=== PATIENT | female | born 1975 | race Caucasian/White ===

== ENCOUNTER → 2021-01-16 10:29 | Outpatient (CLI) | payer BC, SELFPAY ==
--- NOTE | 2021-01-16 07:00 | CYSPIN_PTH ---
PATIENT: ROBI PEREZ LOC: [facility] U#:[id number] AGE/SX: 50/F ROOM: RE01/16/[address]: Dr. Shelley Bardales MD : 1975 BED: DIS: SPEC #: [id number] RECD: 01/16/21 12:18 STATUS: BOUCHRA FREDIS #: [id number] KARI: 01/16/21 07:[address]: Shelley Bardales DEPT: CYTOLOGY RECD BY: Ifrah Murillo Tissues: Urine Procedures: Pap Stain (control) Special Stain Group II Cytospin Fluid HEADER OPERATION: Not noted PRE-OP DIAGNOSIS: Gross hematuria TISSUE SUBMITTED: Urine for cytology DIAGNOSIS CYTOLOGY Urine for cytology (cytospin): Negative for malignant cells. Bloody specimen. See comment. LINDSAY:robert 01/17/2021 COMMENT The specimen predominantly consists of squamous epithelial cells. Clinical correlation and appropriate follow up are necessary. CYTOLOGY STUDY Slides are reviewed. CYTOLOGY GROSS Received is 15.5 ml of brown cloudy fluid labeled with the patient's name and and designated per the requisition as urine. Submitted for cytology preparation. / robert 01/16/2021 TC:5 CPT: 73908
[2021-01-16 11:15] LABS: Cytology, Body Fluid / CSF SEE PATHOLOGY REPORT
== END ==
PROVIDERS: Referring Provider Urology; Visit Provider Urology
DX: R31.0 Gross hematuria (principal)
CPT/HCPCS: 88108; 88313

== ENCOUNTER → 2021-01-21 07:55 | Outpatient (CLI) | payer BC, SELFPAY ==
[2021-01-20 14:24] LABS: Hematocrit 37.6 % (37-47); Hemoglobin 12.2 g/dL (12.0-15.0); Mean Corp Hgb Conc 32.4 g/dL (32-36); Mean Corpuscular Hgb 29.4 pg (27.0-32.0); Mean Corpuscular Volume 90.6 fL (81-99); Mean Platelet Vol. 8.9 fl (6.2-12.0); Platelet Count 276 K/mm3 (150-450); RBC Distribution Width CV 12.8 % (11.6-14.6); RBC Distribution Width SD 41.9 fl (35.1-43.9); Red Blood Count 4.15 M/mm3 (4.2-5.4)
[2021-01-20 14:35] LABS: Anion Gap 5 (5-15); BUN 13 mg/dL (7-18); BUN/Creat Ratio 19.9 RATIO (10-20); Calcium,Total 8.8 mg/dL (8.5-10.1); Chloride 104 mmol/L (98-107); Creatinine, Serum 0.65 mg/dL (0.55-1.02); EST Glomerular Filtration Rate 104 mL/min (>60); Est Glom Filt Rate - Afr Amer 125 mL/min (>60); Glucose 90 mg/dL (74-106); Potassium 3.9 mmol/L (3.5-5.1); Sodium Level 138 mmol/L (136-145)
[2021-01-20 22:21] LABS: Xtra Tube EP Lab EXTRA TUBE
--- NOTE | 2021-01-21 08:02 | CT_ITS ---
STUDY: CT ABDOMEN AND PELVIS WITH AND WITHOUT CONTRAST REASON FOR EXAM: Female, 45 years old. GROSS HEMATURIA for 5 to 6 weeks RADIATION DOSAGE (If Supplied By Facility): CTDIvol = ( 18.51 ) mGy, DLP = ( 2794.40 ) mGycm TECHNIQUE: Transaxial images were obtained from the dome of the diaphragm to the symphysis pubis without oral contrast. 100mL Isovue 370 was administered. Sagittal and coronal images were reconstructed. Individualized dose optimization techniques were used for this CT. COMPARISON: None. FINDINGS: The visualized lung bases are unremarkable. The visualized portions of the heart are within normal limits. Normal liver. Normal gallbladder and extrahepatic biliary system. Normal spleen. Normal pancreas. Normal bilateral adrenal glands. Normal right kidney. Normal left kidney. Normal visualized stomach. Normal small intestine. Normal colon. The appendix is visualized and appears normal. Normal abdominal aorta. Normal inferior vena cava. Normal retroperitoneum. Normal urinary bladder. Normal abdominal wall. Normal osseous structures. CT/CT Abd/Pelvis W/WO Contrast IMPRESSION: Normal unenhanced and enhanced CT of the abdomen and pelvis. Electronically Signed: Vincent Schroeder MD at 9:27 EDT , Service support ,
== END ==
PROVIDERS: PCP General Practice; Referring Provider Urology; Visit Provider Urology
DX: R31.0 Gross hematuria (principal)
CPT/HCPCS: 36415; 74178; 80048; 85027; Q9967

== ENCOUNTER 2021-02-18 06:04 | Day surgery (SDC) | payer BC, SELFPAY ==
[2021-02-18 06:35] VITALS: BP 112/72; PULSE 85; RESP 16; TEMP 36.8; O2SAT 98; BMI 29.4
[2021-02-18 06:39] LABS: Internal QC Validated? YES +Cl - CLEAR BKGD; Pregnancy, Urine Negative Negative
[2021-02-18] MEDS: Lactated Ringers 1,000 ML 100 ML IV ×2 (06:54→08:33)
--- NOTE | 2021-02-18 07:30 | CYSPIN_PTH ---
PATIENT: ROBI [place]EREZ [place] [facility] [id number] AGE/SX: 45/F ROOM: RE02/18/[address]: Dr. Shelley Bardales MD : 1975 BED: DIS: 02/18/2021 SPEC #: [id number] RECD: 02/18/21 12:25 STATUS: BOUCHRA FREDIS #: [id number] KARI: 02/18/21 07:[address]: Shelley Bardales DEPT: CYTOLOGY RECD BY: Ifrah Murillo ENTERED: 02/18/21 13:05 SP TYPE: CYSPIN FL OTHR DR: Dr. Leeann Osorio MD Tissues: A - Kidney, NOS B - Kidney, NOS Procedures: Pap Stain (control) Special Stain Group II Cytospin Fluid HEADER OPERATION: Cysto, ureteroscopy PRE-OP DIAGNOSIS: Gross hematuria TISSUE SUBMITTED: A ? Right renal pelvis for cytology, B ? Left renal pelvis for cytology DIAGNOSIS CYTOLOGY A. Right renal pelvic fluid for cytology (cytospin): Mildly atypical urothelial cells present, favor reactive. B. Left renal pelvic fluid for cytology (cytospin): Mildly atypical urothelial cells present, favor reactive. AM:robert 02/19/2021 COMMENT Case has been reviewed in consultation with Dr. Blanchard who concurs with the above diagnosis. IDC:SJ CYTOLOGY STUDY Slides are reviewed. CYTOLOGY GROSS A - Received is 5 ml of cloudy colorless fluid labeled with the patient's name and and designated per the requisition as right renal pelvis. Submitted for cytology preparation. B - Received is 10 ml of pink cloudy fluid labeled with the patient's name and and designated per the requisition as left renal pelvis. Submitted for cytology preparation. / robert 02/18/2021 TC:? CPT: 43560 x2
--- NOTE | 2021-02-18 08:16 | PCM.HP.STD ---
HPI - General HPI Narrative WEDNESDAY ANA, is a 45 F who presents for further evaluation of gross hematuria with negative CT urogram and negative office cystoscopy. Informed consent was obtained. [facility] Medical History (Updated 02/18/21 @ 08:[address] Shelley Bardales MD) Anxiety Depression Gross hematuria Migraine headache Non-smoker Wears contact lenses Wears glasses Home Medications escitalopram oxalate [Lexapro] 20 mg PO DAILY 02/10/21 [History Last Taken Unknown] Allergy/AdvReac Type Severity Reaction Status Date / Time No Known Allergies Allergy Verified 02/10/21 11:48 Social History Smoking Status: Never smoker ROS Constitutional Constitutional: Reports systems reviewed and no addt'l complaints, except as documented; Denies anorexia, change in weight or chills Eyes Eyes: Reports systems reviewed and no addt'l complaints, except as documented ENT HEENT: Reports systems reviewed and no addt'l complaints, except as documented and abnormal hearing Cardiovascular Cardiovascular: Denies abdominal pain, chest pain or irregular heart rhythm Respiratory/Chest Respiratory/Chest: Denies dyspnea, inability to speak or shortness of breath at rest Gastrointestinal Gastrointestinal: Denies abdominal pain, anorexia, change in bowel habits or hematochezia Genitourinary Genitourinary: Reports hematuria Musculoskeletal Musculoskeletal: Reports systems reviewed and no addt'l complaints, except as documented; Denies difficulty walking Integumentary Integumentary: Reports systems reviewed and no addt'l complaints, except as documented Neurologic Neurologic: Reports systems reviewed and no addt'l complaints, except as documented; Denies abnormal gait, abnormal movements or abnormal speech Psychiatric Psychiatric: Reports systems reviewed and no addt'l complaints, except as documented Vital Signs Vital Signs Vital Signs: 02/18/21 06:34 02/18/21 06:35 Temperature 98.3 F Temperature Source Temporal Pulse Rate 85 Respiratory Rate 16 Respiratory Pattern Normal Blood Pressure 112/72 Blood Pressure Mean 85 Blood Pressure Source Monitor Blood Pressure Position Sitting Blood Pressure Location Left Arm Pulse Ox 98 Oxygen Delivery Method Room Air Physical Exam Const alert, oriented x3, no apparent distress and average body habitus General Appearance: cooperative, comfortable, well kempt and well developed Orientation / Consciousness: awake Exam Limitations: no limitations HEENT normocephalic and head/scalp atraumatic Eyes General Eye: normal appearance of both eyes Eyelid: eyelids normal Neck General: normal visual inspection and trachea midline Chest inspection of chest normal Chest: symmetrical chest wall rise Resp normal respiratory effort, normal air movement, no retractions and no use of accessory muscles Cardio regular rate and regular rhythm GI soft to palpation, non-tender and non-distended no CVA tenderness, external exam normal and appearance of the vagina normal External Female Exam: normal appearance of the urethra Bimanual Exam - Vag & Uterus: normal bimanual exam and normal vaginal palpation Back/Spine no CVA tenderness Extremity normal to inspection and no pedal edema Skin no rashes or lesions noted, no wounds and no jaundice General Skin Exam: no breakdown Neuro oriented x3, CN's II-XII intact bilaterally, moves all extremities and gait normal Psych mental status grossly normal, thought process normal, cooperative and affect normal Lab / Micro Data Labs: Laboratory Results - last 24 hr 02/18/21 06:20 Urine Test Negative Assessment & Plan Assessment/Plan (1) Gross hematuria: PLAN: proceed with cystoscopy, bilateral ureteroscopy, bilateral selective cytologies, possible ureteral stents Procedure Criteria Type of Procedure Procedure Type: Elective Elective Risks - COVID COVID Risk Discussion: The surgeon/proceduralist and patient have discussed in detail the risk of exposure to and/or potential harm posed by the COVID-19 virus with having a surgery/procedure at this time versus the risk of delaying the surgery/procedure. It is not possible to know either the risk of delaying the surgery or procedure or chance of getting an infection with perfect accuracy, but a joint decision was made between the patient and the surgeon/proceduralist to proceed at this time with the scheduled surgery/procedure as indicated on the consent form.
--- NOTE | 2021-02-18 08:27 | PCM.OPRPT ---
Problems Associated Problem List Diagnoses (1) Gross hematuria: Report of Operation Date of Procedure: 02/18/21 Pre-Operative Diagnosis: gross hematuria Post-Operative Diagnosis: same Surgery/Procedure Performed:: cystoscopy, bilateral selective cytology, bilateral retrograde pyelograms, right ureteroscopy, bilateral ureteral stent insertion Description of Surgical Findings:: Bilateral narrow ureters distally, unable to access proximal with the ureteroscope. Surgeon: Shelley Bardales statistical machine servicer: Nata Type of Anesthesia: General Specimen's removed: Bilateral urine selective from each kidney sent separately for cytology Description of Procedure: The patient is a 45-year-old female with gross hematuria recurrently with negative cystoscopy and CT urogram. She presents today for further evaluation with ureteroscopy and bilateral selective cytologies. Informed consent was obtained. The patient was taken to the operating room placed on the operating room table. Anesthesia monitored the head, neck, airway, IV access and vital signs throughout the case. Once anesthesia was apparently administered the patient was placed into dorsal lithotomy position and was prepped and draped in usual sterile fashion. A cystourethroscopy was performed through the urethra under direct visualization into the urinary bladder. The urethra was normal without evidence of mass, stricture or abnormality. Upon entry into the urinary bladder the bladder mucosa was visualized in its entirety. There were no masses ulcerations or lesions identified. Bilateral ureteral orifices were correctly located in the area of the trigone. A Pollick catheter was used to gently intubate the right ureteral orifice and was inserted up to 20 cm and selective cytology was obtained. A retrograde pyelogram was then performed through the Pollick catheter. No filling defects were identified at this time. There is a question of narrowing in the area of the distal ureter. At this time a wire was passed through the Pollick catheter. Flexible ureteroscopy was attempted over the wire. The flexible ureteroscope entered the distal aspect of the ureter and a narrowing was unable to be navigated. The decision was made to place a ureteral stent and return later for ureteroscopy. A 6 x 24 JJ stent was placed over the wire with positioning in the renal pelvis as well as the urinary bladder. This exact procedure was repeated on the patient's left side with brand-new Pollick catheter and syringe. The findings were the same except the ureteroscope was unable to enter into the left ureter at all. A 6 x 24 JJ stent was placed on the site as well. The patient's bladder was then emptied and the case was terminated. The patient was taken to the recovery room in good condition. Grafts/Implants Used: 6 x 24 JJ stent x2 Complications None Admit VTE Documentation VTE Present on Admission: Yes VTE Mechan Device Prophylaxis: SCD's VTE Pharm Prophylaxis ordered?: No Reason prophylaxis not ordered:: Treatment Not Indicated
--- NOTE | 2021-02-18 08:28 | PCM.DC ---
Discharge Instructions Diet Discharge Diet: No restrictions Activity Discharge Activity: Return to Normal Activity and May not drive while taking narcotic pain medications. May resume sexual activity in: No Restrictions Dressing / Incision Call your doctor if you observe: Fever of 101 or Higher, Inability to urinate, Inability to have a bowel movement and Uncontrolled pain Follow Up Care Please Follow Up With: Shelley Bardales MD When: call office for appt Test Results: Test results from this visit will be discussed in further detail at your follow-up appointment, if applicable. Discharge Plan Admission Primary Reason for Your Visit: Gross Hematuria Attending Provider: Shelley Bardales Primary Care Provider: Leeann Osorio Discharge Orders/Prescriptions Prescriptions: New oxycodone-acetaminophen [Percocet] 5-325 mg tablet 1 tab PO Q8H PRN (Reason: pain) 3 Days Qty: 10 RF: 0 cephalexin 500 mg capsule 500 mg PO Q12 Qty: 6 RF: 0 phenazopyridine [Pyridium] 200 mg tablet 200 mg PO TID PRN PRN (Reason: Bladder Spasms) Qty: 30 RF: 0 Continued escitalopram oxalate [Lexapro] 20 mg Tablet 20 mg PO DAILY RF: 0 Referrals / Follow Up: Leeann Osorio MD [Primary Care Provider] - Disposition Disposition (needs filled in before D/C Order can be placed): Home, self care
[2021-02-18] MEDS: Cefazolin 2 GM in 0.9% Normal Saline 100 ML IV (11:12)
[2021-02-18 12:15] VITALS: BP 112/72; BP 119/77; PULSE 101; RESP 16; TEMP 37.3; O2SAT 99
[2021-02-18 12:30] VITALS: BP 112/72; BP 127/88; PULSE 94; RESP 16; O2SAT 100
[2021-02-18 12:37] VITALS: BP 112/72; BP 127/87; PULSE 89; RESP 16; TEMP 36.8; O2SAT 99
[2021-02-18 13:43] VITALS: BP 112/72; BP 132/82; PULSE 81; RESP 16; TEMP 36.6; O2SAT 98
== END 2021-02-18 13:48 | disposition home or self-care (01) ==
LOC: SDC 06:05 → AC 06:07
PROVIDERS: Anesthesiology; PCP General Practice; Referring Provider Urology; Visit Provider Urology
PROC: 0TJ98ZZ Inspection of Ureter, Via Natural or Artificial Opening Endoscopic (ICD-10-PCS; CPT 52352; principal; 2021-02-18 07:20)
DX: R31.0 Gross hematuria (principal); F41.9 Anxiety disorder, unspecified; F32.9 Major depressive disorder, single episode, unspecified; Z79.899 Other long term (current) drug therapy
CPT/HCPCS: 52332; 52351; 76000; 81025; 88108; 88313; J7120; C2617; J2405

== ENCOUNTER 2021-02-27 07:10 | Day surgery (SDC) | payer BC, SELFPAY ==
--- NOTE | 2021-02-27 06:49 | PCM.HP.STD ---
HPI - General HPI Narrative WEDNESDAY ANA, is a 45 F who presents for ureteroscopy and stent change bilaterally to fully evaluate her gross hematuria. Her ureters were too narrow for ureteroscopy at the last attempt. COUNT INCLUDES [facility] Medical History Anxiety Depression Gross hematuria (~02/18/21) Migraine headache Non-smoker Wears contact lenses Wears glasses Home Medications escitalopram oxalate [Lexapro] 20 mg PO DAILY 02/10/21 [History Last Taken Unknown] oxycodone-acetaminophen [Percocet] 1 tab PO Q8H PRN 3 Days #10 tab 02/18/21 [Rx Last Taken Unknown] Allergy/AdvReac Type Severity Reaction Status Date / Time No Known Allergies Allergy Verified 02/24/21 11:09 Surgical History (Updated 02/24/21 @ 11:10 by Carley Romo) Hx of cystoscopy Social History Smoking Status: Never smoker ROS Constitutional Constitutional: Denies anorexia, change in weight or fever(s) Eyes Eyes: Reports systems reviewed and no addt'l complaints, except as documented ENT HEENT: Reports systems reviewed and no addt'l complaints, except as documented Cardiovascular Cardiovascular: Denies chest pain or dyspnea Respiratory/Chest Respiratory/Chest: Denies cough or dyspnea Gastrointestinal Gastrointestinal: Reports systems reviewed and no addt'l complaints, except as documented Genitourinary Genitourinary: Reports hematuria and other Details: with stents having colic and bladder spasms Integumentary Integumentary: Reports systems reviewed and no addt'l complaints, except as documented Neurologic Neurologic: Reports systems reviewed and no addt'l complaints, except as documented Psychiatric Psychiatric: Reports systems reviewed and no addt'l complaints, except as documented Hematologic/Lymphatic Hematologic/Lymphatic: Reports systems reviewed and no addt'l complaints, except as documented Vital Signs Vital Signs Vital Signs: Weight Body Mass Index (BMI) 29.4 Physical Exam Const alert, oriented x3 and no apparent distress General Appearance: cooperative, comfortable and well kempt Orientation / Consciousness: awake Exam Limitations: no limitations HEENT normocephalic, head/scalp atraumatic and hearing grossly normal bilaterally Eyes conjunctivae normal and no scleral icterus General Eye: normal appearance of both eyes Neck supple General: trachea midline Chest inspection of chest normal Chest: symmetrical chest wall rise Resp normal respiratory effort, normal air movement and no retractions Cardio regular rate and regular rhythm GI soft to palpation, non-tender and non-distended no CVA tenderness and external exam normal Back/Spine no CVA tenderness Extremity normal to inspection and no calf tenderness Skin no rashes or lesions noted, no wounds, skin turgor normal and no jaundice Neuro oriented x3, CN's II-XII intact bilaterally and moves all extremities Psych mental status grossly normal, thought process normal and cooperative Assessment & Plan Assessment/Plan (1) Gross hematuria: PLAN: proceed with cystoscopy, bilateral ureteroscopy and bilateral stent change. informed consent obtained Procedure Criteria Type of Procedure Procedure Type: Elective Elective Risks - COVID COVID Risk Discussion: The surgeon/proceduralist and patient have discussed in detail the risk of exposure to and/or potential harm posed by the COVID-19 virus with having a surgery/procedure at this time versus the risk of delaying the surgery/procedure. It is not possible to know either the risk of delaying the surgery or procedure or chance of getting an infection with perfect accuracy, but a joint decision was made between the patient and the surgeon/proceduralist to proceed at this time with the scheduled surgery/procedure as indicated on the consent form.
--- NOTE | 2021-02-27 06:58 | PCM.DC ---
Discharge Instructions Diet Discharge Diet: No restrictions Activity Discharge Activity: Return to Normal Activity and May not drive while taking narcotic pain medications. May resume sexual activity in: No Restrictions Dressing / Incision Call your doctor if you observe: Fever of 101 or Higher, Inability to urinate, Inability to have a bowel movement, Calf discomfort and Uncontrolled pain Follow Up Care Please Follow Up With: Shelley Bardales MD When: call office for appt Test Results: Test results from this visit will be discussed in further detail at your follow-up appointment, if applicable. Discharge Plan Admission Attending Provider: Shelley Bardales Primary Care Provider: Leeann Osorio Discharge Orders/Prescriptions Prescriptions: New cephalexin 500 mg capsule 500 mg PO Q12 Qty: 6 RF: 0 Uribel 118-10-40.8-36 mg capsule 1 tab PO TID PRN PRN (Reason: bladder spasms) 10 Days Qty: 30 RF: 3 Continued escitalopram oxalate [Lexapro] 20 mg Tablet 20 mg PO DAILY RF: 0 oxycodone-acetaminophen [Percocet] 5-325 mg tablet 1 tab PO Q8H PRN (Reason: pain) 3 Days Qty: 10 RF: 0 Referrals / Follow Up: Leeann Osorio MD [Primary Care Provider] - Disposition Disposition (needs filled in before D/C Order can be placed): Home, self care
--- NOTE | 2021-02-27 06:59 | PCM.OPRPT ---
Problems Associated Problem List Diagnoses (1) Gross hematuria: Report of Operation Date of Procedure: 02/27/21 Pre-Operative Diagnosis: gross hematuria Post-Operative Diagnosis: same, right renal pelvic lesion Surgery/Procedure Performed:: cystoscopy, bilateral ureteroscopy, Laser of right renal pelvic lesion, bilateral stent change Surgeon: Shelley Bardales Type of Anesthesia: General Specimen's removed: Right renal pelvic washings for cytology Description of Procedure: The patient is a 45-year-old female with gross hematuria who presents for ureteroscopic evaluation and treatment. Informed consent was obtained. The patient was taken to the operating room and placed on the operating room table. Anesthesia monitored the head, neck, airway, IV access and vital signs throughout the case. Once anesthesia was appropriately administered, the patient was placed into dorsal lithotomy position was prepped and draped in usual sterile fashion. The cystoscope was entered into the urinary bladder through the urethra under direct visualization. Bilateral ureteral stents were observed. The right 1 was grasped with the grasping forceps and pulled into the urethral meatus. A wire was inserted through the stent into the renal pelvis seen on fluoroscopy. Using the cystoscope, a second 0.035 Glidewire was placed alongside the first to be used for safety wire. The ureteroscope was then inserted over the wire and access was obtained to the right renal pelvis. In the mid pole 2 areas of polyp formation were seen in 2 separate calyces. The remainder of the examination was normal. There was no active bleeding at this time. An attempt was made at biopsy of these tissues, the ureteroscope would not curve appropriately enough to gain access while the biopsy forceps were in position. The decision was made to laser these tissues and send washings for cytologic evaluation. This was then performed as planned. The 2 lesions were treated and cytology was sent. The remainder of the collecting system including the entire length of the right ureter was directly visualized as the ureteroscope was removed finding no abnormalities. Using the safety wire, a 6 Palestinian 24 cm ureteral stent was inserted without difficulty. Attention was then turned toward the patient's left side where the stent was grasped and pulled to the meatus. A wire was inserted through the stent and one alongside it for safety. An attempt was made at passage of the ureteroscope up to the renal pelvis but access was only gained to the distal ureter. At this time the decision was made to replace the stent and allow for further dilatation of the ureter for a full 2 weeks. The ureteroscope was removed finding no abnormality of the distal left ureter. A 6 Palestinian 24 cm double-J stent was inserted without difficulty over the safety wire with good curling in the renal pelvis as well as the urinary bladder. The patient's bladder was then emptied and the case was terminated. The patient was awakened and taken to the recovery room in good condition. There were no complications during this procedure. Grafts/Implants Used: 6 x 24 JJ stents Complications None Admit VTE Documentation VTE Present on Admission: Yes VTE Mechan Device Prophylaxis: SCD's VTE Pharm Prophylaxis ordered?: No Reason prophylaxis not ordered:: Treatment Not Indicated
[2021-02-27 07:37] VITALS: BP 112/75; PULSE 77; RESP 18; TEMP 36.3; O2SAT 99; BMI 29.0
[2021-02-27 07:39] LABS: Internal QC Validated? YES +Cl - CLEAR BKGD; Pregnancy, Urine Negative Negative
[2021-02-27] MEDS: Lactated Ringers 1,000 ML 100 ML IV ×2 (07:47→09:55)
[2021-02-27] MEDS: Cefazolin 2 GM in 0.9% Normal Saline 100 ML IV (08:23)
--- NOTE | 2021-02-27 08:30 | FLU_PTH ---
PATIENT: ROBI PEREZ [place] [facility] [place][id number] AGE/SX: 45/F ROOM: RE02/27/[address]: Dr. Shelley Bardales MD : 1975 BED: DIS: 02/27/2021 SPEC #: [id number] RECD: 02/27/21 10:22 STATUS: BOUCHRA FREDIS #: [id number] KARI: 02/27/21 08:[address]: Shelley Bardales DEPT: CYTOLOGY RECD BY: Ifrah Murillo ENTERED: 02/27/21 11:04 SP TYPE: Fluid OTHR DR: Dr. Leeann Osorio MD Tissues: Kidney, NOS Procedures: Special Stain Group II Surgery Specimen Level IV Cytospin Fluid HEADER OPERATION: Cysto, bilateral ureteroscopy, bilateral stent change PRE-OP DIAGNOSIS: Gross hematuria TISSUE SUBMITTED: Right renal pelvic washings for cytology DIAGNOSIS CYTOLOGY Right renal pelvis, washings (cytospin and cell block): Negative for malignant cells. See comment. AM:robert 02/28/2021 COMMENT Urothelial cells in clusters are identified. Clinical correlation is suggested. Case has been reviewed in consultation with Dr. Blanchard who concurs with the above diagnosis. IDC:LINDSAY CYTOLOGY STUDY Slides are reviewed. CYTOLOGY GROSS Received is 20 ml of light pink cloudy fluid labeled with the patient's name and and designated per the requisition as right renal pelvic washings. Submitted for cytology preparation. / LINDSAY:robert 02/27/21 TC:5 CPT: 61128
[2021-02-27 10:00] VITALS: BP 107/74; BP 112/75; PULSE 88; RESP 16; TEMP 36.1; O2SAT 97
[2021-02-27 10:08] VITALS: BP 100/71; BP 112/75; PULSE 87; RESP 18; O2SAT 100
[2021-02-27 10:15] VITALS: BP 106/82; BP 112/75; PULSE 87; RESP 18; O2SAT 96
[2021-02-27 10:30] VITALS: BP 112/75; BP 112/86; PULSE 81; RESP 18; TEMP 36.1; O2SAT 100
[2021-02-27 11:30] VITALS: BP 112/75; BP 117/85; PULSE 76; RESP 18; TEMP 36.2; O2SAT 100
== END 2021-02-27 12:07 | disposition home or self-care (01) ==
LOC: SDC 07:11 → AC 07:12
PROVIDERS: Anesthesiology; PCP General Practice; Referring Provider Urology; Visit Provider Urology
PROC: 0TJ98ZZ Inspection of Ureter, Via Natural or Artificial Opening Endoscopic (ICD-10-PCS; CPT 52352; principal; 2021-02-27 08:20)
DX: R31.0 Gross hematuria (principal); F41.9 Anxiety disorder, unspecified; F32.9 Major depressive disorder, single episode, unspecified; G43.909 Migraine, unspecified, not intractable, without status migrainosus; Z79.899 Other long term (current) drug therapy
CPT/HCPCS: 00912; 52332; 52354; 76000; 81025; 88108; 88305; 88313; J7120; C2617; J2405

== ENCOUNTER 2021-03-11 10:48 | Day surgery (SDC) | payer BC, SELFPAY ==
[2021-03-11 11:12] LABS: Internal QC Validated? YES +Cl - CLEAR BKGD; Pregnancy, Urine Negative Negative
[2021-03-11] MEDS: Lactated Ringers 1,000 ML 100 ML IV (11:22)
[2021-03-11 11:24] VITALS: BP 122/79; PULSE 77; RESP 16; TEMP 36.9; O2SAT 100; BMI 29.2
[2021-03-11] MEDS: Cefazolin 2 GM in 0.9% Normal Saline 100 ML IV (13:44)
--- NOTE | 2021-03-11 13:53 | PCM.OPRPT ---
Problems Associated Problem List Diagnoses (1) Gross hematuria: Report of Operation Date of Procedure: 03/11/21 Pre-Operative Diagnosis: Gross hematuria Post-Operative Diagnosis: Same Surgery/Procedure Performed:: Cystoscopy, left ureteroscopy, bilateral ureteral stent removal Surgeon: Shelley Bardales Type of Anesthesia: General Specimen's removed: None Description of Procedure: The patient is a 45-year-old female with gross hematuria who is already status post cystoscopy with bilateral ureteral stent insertion for ureteral dilation, right ureteroscopy with laser of tissue in the right renal pelvis. She now presents for further evaluation of her left calyces. Informed consent was obtained. The patient was taken to the operating room and placed in the operating room table. Anesthesia monitored the head, neck, airway, IV access and vital signs throughout the case. Once anesthesia was appropriately administered the patient was placed into dorsal lithotomy position was prepped and draped in usual sterile fashion. At this time the cystoscope was inserted through the urethra under direct visualization into the urinary bladder. The stents were easily identified. The right ureteral stent was removed without difficulty. The left ureteral stent was brought to the urethral meatus and intubated with a 0.035 Glidewire. At this point the stent was removed and a second wire was placed alongside the first. This was used as a safety wire. The flexible ureteroscope was then passed over this wire without difficulty and access was obtained to the left renal pelvis. Each calyces was directly visualized and found to be complex in nature but without evidence of mass, stone or bleeding. There was no abnormal tissue identified. At this time the entire left ureter was directly visualized with the ureteroscope and found to be within normal limits. The ureteroscope was then removed along with the safety wire. The patient's bladder was emptied and the case was terminated. The patient was taken to the recovery room in good condition, there were no complications during this procedure. Grafts/Implants Used: None Complications None Admit VTE Documentation VTE Present on Admission: Yes VTE Mechan Device Prophylaxis: SCD's Reason prophylaxis not ordered:: Treatment Not Indicated
--- NOTE | 2021-03-11 14:08 | PCM.DC ---
Discharge Instructions Diet Discharge Diet: No restrictions Activity Discharge Activity: Return to Normal Activity May resume sexual activity in: No Restrictions Dressing / Incision Call your doctor if you observe: Fever of 101 or Higher, Inability to urinate, Inability to have a bowel movement, Calf discomfort and Uncontrolled pain Follow Up Care Please Follow Up With: Shelley Bardales MD When: in 3 weeks. Office will call her to schedule CT first. Test Results: Test results from this visit will be discussed in further detail at your follow-up appointment, if applicable. Discharge Plan Admission Attending Provider: Shelley Bardales Primary Care Provider: Leeann Osorio Discharge Orders/Prescriptions Prescriptions: New hydrocodone-acetaminophen [hydrocodone-acetaminophen] 1 TABLET tablet 1 tab PO Q4H PRN PRN (Reason: Pain) 7 Days Qty: 20 RF: 0 cephalexin [cephalexin] 500 MG capsule 500 mg PO Q12 3 Days Qty: 6 RF: 0 Continued escitalopram oxalate [Lexapro] 20 mg Tablet 20 mg PO DAILY RF: 0 Uribel 118-10-40.8-36 mg capsule 1 tab PO TID PRN PRN (Reason: bladder spasms) 10 Days Qty: 30 RF: 3 Referrals / Follow Up: Leeann Osorio MD [Primary Care Provider] - Disposition Disposition (needs filled in before D/C Order can be placed): Home, self care
[2021-03-11 14:15] VITALS: BP 118/81; BP 122/79; PULSE 77; RESP 16; TEMP 36.2; O2SAT 100
[2021-03-11 14:30] VITALS: BP 116/89; BP 122/79; PULSE 84; RESP 16; O2SAT 98
[2021-03-11 14:45] VITALS: BP 116/86; BP 122/79; PULSE 76; RESP 16; O2SAT 98
[2021-03-11 14:50] VITALS: BP 122/79; BP 122/81; PULSE 73; RESP 16; TEMP 36.1; O2SAT 99
[2021-03-11 15:30] VITALS: BP 122/79; BP 123/88; PULSE 82; RESP 16; TEMP 36.6; O2SAT 99
--- NOTE | 2021-03-14 08:42 | HP.PCM_ITS ---
HPI - General HPI Narrative WEDNESDAY ANA, is a 45 F who presents for cystoscopy, left ureteroscopy for gross hematuria unknown etiology. Informed consent was obtained. She has no complaints consistent with urinary tract infection today. [facility] Medical History Anxiety Depression Gross hematuria (~02/18/21) Migraine headache Non-smoker Wears contact lenses Wears glasses Home Medications escitalopram oxalate [Lexapro] 20 mg PO DAILY 02/10/21 [History Last Taken 03/10/21] Uribel 1 tab PO TID PRN PRN 10 Days #30 cap 02/27/21 [Rx Last Taken Unknown] cephalexin 500 mg PO Q12 3 Days #6 capsule 03/11/21 [Rx Last Taken Unknown] hydrocodone-acetaminophen 1 tab PO Q4H PRN PRN 7 Days #20 tablet 03/11/21 [Rx Last Taken Unknown] Allergy/AdvReac Type Severity Reaction Status Date / Time No Known Allergies Allergy Verified 03/05/21 16:02 Surgical History Hx of cystoscopy Social History Smoking Status: Never smoker ROS Constitutional Constitutional: Reports systems reviewed and no addt'l complaints, except as documented Eyes Eyes: Reports systems reviewed and no addt'l complaints, except as documented ENT HEENT: Reports systems reviewed and no addt'l complaints, except as documented Cardiovascular Cardiovascular: Reports systems reviewed and no addt'l complaints, except as documented Respiratory/Chest Respiratory/Chest: Reports systems reviewed and no addt'l complaints, except as documented Gastrointestinal Gastrointestinal: Reports systems reviewed and no addt'l complaints, except as documented Genitourinary Genitourinary: Reports systems reviewed and no addt'l complaints, except as documented and hematuria Integumentary Integumentary: Reports systems reviewed and no addt'l complaints, except as documented Neurologic Neurologic: Reports systems reviewed and no addt'l complaints, except as documented Psychiatric Psychiatric: Reports systems reviewed and no addt'l complaints, except as documented Endocrine Endocrinology: Reports systems reviewed and no addt'l complaints, except as documented Hematologic/Lymphatic Hematologic/Lymphatic: Reports systems reviewed and no addt'l complaints, except as documented Vital Signs Vital Signs Vital Signs: Weight Weight: 75 kg Body Mass Index (BMI) 29.2 Physical Exam Const alert, oriented x3 and no apparent distress HEENT normocephalic and head/scalp atraumatic Eyes conjunctivae normal and no scleral icterus Neck supple General: trachea midline Lymph Lymphatic: no lymphedema noted Chest inspection of chest normal Chest: symmetrical chest wall rise Resp normal respiratory effort, normal air movement and no retractions Effort and Inspection: able to speak in complete sentences and symmetric chest movement Cardio regular rate and regular rhythm GI soft to palpation, non-tender, non-distended and no masses external exam normal Back/Spine no CVA tenderness Extremity normal to inspection Skin no rashes or lesions noted, no wounds, skin turgor normal, no jaundice, no petechiae and no mottling Neuro oriented x3, CN's II-XII intact bilaterally, moves all extremities and gait normal Psych mental status grossly normal and thought process normal Assessment & Plan Assessment/Plan (1) Gross hematuria: PLAN: Proceed with cystoscopy, left ureteroscopy possible left ureteral stent change. Informed consent obtained Procedure Criteria Type of Procedure Procedure Type: Elective Elective Risks - COVID COVID Risk Discussion: The surgeon/proceduralist and patient have discussed in detail the risk of exposure to and/or potential harm posed by the COVID-19 virus with having a surgery/procedure at this time versus the risk of delaying the surgery/procedure. It is not possible to know either the risk of delaying the surgery or procedure or chance of getting an infection with perfect accuracy, but a joint decision was made between the patient and the surgeon/proceduralist to proceed at this time with the scheduled surgery/procedure as indicated on the consent form.
== END 2021-03-11 15:53 | disposition home or self-care (01) ==
LOC: SDC 10:48 → AC 10:49
PROVIDERS: Anesthesiology; PCP General Practice; Referring Provider Urology; Visit Provider Urology
PROC: 0TJ98ZZ Inspection of Ureter, Via Natural or Artificial Opening Endoscopic (ICD-10-PCS; CPT 52352; principal; 2021-03-11 12:10)
DX: R31.0 Gross hematuria (principal); F41.9 Anxiety disorder, unspecified; F32.9 Major depressive disorder, single episode, unspecified; Z79.899 Other long term (current) drug therapy; G43.909 Migraine, unspecified, not intractable, without status migrainosus
CPT/HCPCS: 00910; 52310; 76000; 81025; J7120; J2405

== ENCOUNTER → 2021-07-03 13:25 | Outpatient (CLI) | payer BC, SELFPAY ==
--- NOTE | 2021-07-03 13:37 | MRI_ITS ---
STUDY: MRI ABDOMEN WITH AND WITHOUT CONTRAST REASON FOR EXAM: Female, 45 years old. ABNORMAL RADIOLOGIC FINDINGS ON DIAGNOSTIC IMAGING TECHNIQUE: Standardized fat and water weighted pulse sequences were obtained in all 3 orthogonal planes post contrast administration. IV contrast was administered for the contrast portion of the examination. Contrast type and dosage information was not provided. COMPARISON: CT 01/21/2021. FINDINGS: Normal visualized liver. Normal gallbladder and extrahepatic biliary system. Normal visualized spleen. Normal pancreas. Normal bilateral adrenal glands. Normal right kidney. Normal left kidney. Normal visualized stomach. Normal small intestine. Normal colon. Normal abdominal aorta. Normal inferior vena cava. Normal retroperitoneum. Normal abdominal wall. Normal osseous structures. MRI/MRI Abd WITH and W/O Contrast IMPRESSION: Normal kidneys. No suspicious enhancing mass. Electronically Signed: Jason Daniels MD at 17:31 EDT Tel , Service support ,
== END ==
PROVIDERS: PCP General Practice; Visit Provider Urology
DX: R31.0 Gross hematuria (principal); R93.49 Abnormal radiologic findings on diagnostic imaging of other urinary organs
CPT/HCPCS: 74183; A9575

== ENCOUNTER → 2023-06-17 | Outpatient (CLI) | payer OTHER, SELFPAY ==
--- NOTE | 2023-06-17 | CYSPIN_PTH ---
PATIENT: ROBI PEREZ LOC: [facility] U#:[id number] AGE/SX: 47/F ROOM: RE06/17/[address]: Dr. Shelley Bardales MD : 1975 BED: DIS: 06/17/2023 SPEC #: [id number] RECD: 06/18/23 08:44 STATUS: [place] REGin #: [id number] KARI: 06/17/23 00:[address]: Shelley Bardales DEPT: CYTOLOGY RECD BY: Ronnie Patel ENTERED: 06/18/23 08:45 SP TYPE: CYSPIN FL OTHR DR: Dr. Leeann Osorio MD Tissues: Urine Procedures: Pap Stain (control) Special Stain Group II Cytospin Fluid HEADER OPERATION: Not noted PRE-OP DIAGNOSIS: Gross hematuria TISSUE SUBMITTED: Urine for cytology DIAGNOSIS CYTOLOGY Urine for cytology (cytospin): Negative for high-grade urothelial carcinoma (NHGUC), [facility] System Category II. See comment. AM:robert 06/18/2023 COMMENT The [facility] System for urine cytology diagnostic categorization was used in the evaluation of this case. Focal bacterial colonies are identified. CYTOLOGY STUDY Slides are reviewed. CYTOLOGY GROSS Received is 30 ml of reddish cloudy fluid labeled with the patient's name and and designated per the requisition as urine. Submitted for cytology preparation. / robert 06/18/2023 TC:5 CPT: 94264
[2023-06-17 18:20] LABS: Cytology, Body Fluid / CSF SEE PATHOLOGY REPORT
== END | disposition home or self-care (01) ==
PROVIDERS: PCP General Practice; Referring Provider Urology; Visit Provider Urology
DX: R31.0 Gross hematuria (principal)
CPT/HCPCS: 88108; 88313